=== PATIENT | female | born 1970 | race Caucasian/White ===

== ENCOUNTER 2017-05-25 21:51 | Inpatient (IN) ==
[2017-05-25] MEDS ORDERED: D5% in Water 1,000 ML IVC PRN (23:24)
[2017-05-25] MEDS ORDERED: Dextrose Gel 15 GM PO PRN ×2 (23:24)
[2017-05-25] MEDS ORDERED: *HR* Dextrose 50 % in Water (Syg) 50 ML SYRINGE IVP PRN (23:24)
[2017-05-25] MEDS ORDERED: Insulin DETEMIR 100 UNIT/ML per UNIT SQ ONE (23:45)
[2017-05-26] MEDS: Insulin LISPRO 300 UNITS/3 ML VIAL SQ SCH ×5 (01:04→21:14)
[2017-05-26] MEDS: Albuterol 2.5 MG/3 ML NEBULIZER IH SCH ×7 (01:05→23:46)
[2017-05-26 05:55] LABS: Basophils % 0.5 %; Eosinophils % 0.9 %; Hematocrit 23.6 % (35.3-44.9); Hemoglobin 7.3 g/dL (11.5-15.4); Immature Granulocytes % 0.5 % (0-4); Lymphocytes # 0.9 K/mcL (0.6-4.6); Lymphocytes % 21.2 %; Mean Corpuscular HGB Conc 30.9 g/dL (31.6-35.5); Mean Corpuscular Hemoglobin 26.6 pg (28.0-33.3); Mean Corpuscular Volume 86.1 fL (83.0-100.0); Monocytes # 0.4 K/mcL (0.0-1.3); Monocytes % 9.5 %; Neutrophils # 2.9 K/mcL (1.6-8.9); Platelet Count 178 K/mcL (140-400); Red Blood Count 2.74 M/mcL (3.82-4.97); Red Cell Distribution Width 14.6 % (11.5-14.5); Segmented Neutrophils % 67.4 %
[2017-05-26 05:56] LABS: INR 1.2; Prothrombin Time 12.9 Seconds (9.4-12.1)
[2017-05-26 05:58] LABS: Activated Partial Thrombo Time 28.1 Seconds (26.0-36.0)
[2017-05-26 06:07] LABS: Calcium 8.6 mg/dL (8.6-10.3); Potassium 3.3 mEq/L (3.5-5.1)
[2017-05-26] MEDS: Sucralfate 1 GM TABLET PO SCH ×4 (06:44→21:15)
[2017-05-26] MEDS: *HR* Heparin 5,000 UNIT/ML VIAL SQ SCH ×2 (06:44→17:41)
[2017-05-26 07:54] LABS: Bilirubin,Urine Negative (Negative); Blood,Urine Trace-lysed (Negative); Clarity,Urine Clear (Clear); Color,Urine Yellow (Yellow); Glucose,Urine (UA) Normal (Normal); Ketones,Urine Negative (Negative); Leukocyte Esterase,Urine Negative (Negative); Nitrite,Urine Negative (Negative); Protein,Urine 30 mg/dL (Neg-Trace); Specific Gravity,Urine 1.015 (1.010-1.025); Urobilinogen,Urine Normal (Normal)
[2017-05-26] MEDS: Multivit/Ca/Min/Fe/FA 1 TAB TABLET PO SCH (08:39)
[2017-05-26] MEDS: Furosemide 40 MG TABLET PO SCH ×2 (08:40→17:08)
[2017-05-26 09:08] LABS: Hemoglobin A1C 6.6 %
[2017-05-26 10:43] LABS: RBC,Urine 0-3 per hpf (0-3); Squamous Epithelial Cell,Urine Few per lpf (None-Few)
--- NOTE | 2017-05-26 12:16 | Internal Med History&Physical ---
Date of Encounter: 05/26/17 Time of Encounter: 12:09 Assessment and Plan (1) Respiratory failure Current visit: Yes Status: Acute Patient appears relaxed with respiratory effort. Noted scattered fine rales throughout lozada. Stated dyspnea with exertion and history of orthopnea. No hypoxia while on O2. Will obtain chest x-ray for evaluation. Continue on current bronchodilators and medications. Physical therapy to evaluate and await recommendations. Qualifiers: Chronicity: acute Respiratory failure complication: unspecified whether with hypoxia or hypercapnia Qualified Code(s): J96.00 - Acute respiratory failure, unspecified whether with hypoxia or hypercapnia (2) Acute kidney failure Current visit: Yes Status: Acute Renal function continues to improve after reviewing patient's hospital records. Creatinine remained 2.77 and patient remains anemic with hemoglobin of 7.3. Patient continues with moderate generalized edema. We will bam the patient's labs and obtain daily weights. Patient to continue on Epogen and current plan of care per nephrology. Qualifiers: Acute renal failure type: unspecified Qualified Code(s): N17.9 - Acute kidney failure, unspecified (3) Diabetes Current visit: No Status: Chronic Patient with a long history of DM and continues with fingersticks and SSI coverage. Last hemoglobin A1c was 8.1 while at [facility] per medical records. We will continue with current insulin coverage and monitor need for adjustments. Qualifiers: Diabetes mellitus type: type 2 Diabetes mellitus complication status: with kidney complications Diabetes mellitus complication detail: with other kidney complication Diabetes mellitus halfway insulin use: with terminal worker use Qualified Code(s): E11.29 - Type 2 diabetes mellitus with other diabetic kidney complication; Z79.4 - intermediate (current) use of insulin; Z79.4 - terminal worker ( current) use of insulin; Z79.4 - intermediate (current) use of insulin; Z79.4 - terminal worker (current) use of insulin (4) Cardiomyopathy Current visit: No Status: Chronic No acute issues at this time. EF at 25% per medical records. Patient states history of orthopnea. We will continue to monitor closely. We will continue with current medications Qualifiers: Cardiomyopathy type: unspecified Qualified Code(s): I42.9 - Cardiomyopathy , unspecified (5) Diarrhea Current visit: Yes Status: Acute Patient with continued diarrhea which has been present since prior to her charge from hospital. Patient was evaluated for C. difficile while in the hospital which was negative at that time. We will resend stool for evaluation of C. difficile. Qualifiers: Diarrhea type: unspecified type Qualified Code(s): R19.7 - Diarrhea, unspecified (6) Anemia Current visit: Yes Status: Acute Hemoglobin was 7.3 this morning. Patient continues on Epogen per nephrology. We will continue to monitor current labs. Qualifiers: Anemia type: unspecified type Qualified Code(s): D64.9 - Anemia, unspecified Internal Medicine - H&P: HPI Chief complaint: Sepsis Admitted From: Intrahospital Transfer Plans for Post Hospital Care: Home History of present illness: Ms. Whitehead is a 47 year old female who was transferred to this facility from [facility] for rehabilitation after an extended stay for treatment for flu sepsis, respiratory failure, SAFIA and DKA. Patient was originally admitted for respiratory failure required intubation at [facility] and found to be septic with influenza. During that hospitalization patient was treated for DKA and progressed into a severe SAFIA. Patient has a long history of cardiomyopathy with a recorded EF of 25% and insulin dependent diabetes. Patient eventually recovered, being extubated several days prior to discharge. Patient continues with treatment of SAFIA and DM and remains in a weakened state. Pt continues with renal insufficiency with a creatinine of 2.77 and noted slight anasarca during exam. Labs also show patient was continued anemia with hemoglobin of 7.3. Patient discharged with Epogen injections. Patient states she continues to have a productive cough with white type sputum received and becomes dyspneic on exertion greater than 30 feet. Patient states orthopnea. Patient also complains of diarrhea, stating multiple episodes of stools throughout the day. Medical records from [facility] show patient was tested for C. difficile approximate 5 days prior to discharge, which was negative. Patient currently denies any discomforts, fever or chills. Patient denies any history of pulmonary issues prior to this admission Past Med Surg Social Fam HX - Past Medical History Medical history: atrial fibrillation, diabetes, other (Cardiomyopathy) Psychiatric history: no psych history - Past Surgical History Surgical History: no surgical history - Social History Smoking Status: Smoker, status unknown Alcohol use: unknown Drug use: unknown - Family History Mother History Unknown: Yes Father History Unknown: Yes Internal Medicine - H&P: Meds Albuterol Neb [Proventil Neb] 2.5 mg IH Q4HR 05/26/17 [History] Carafate 1 gm PO QIDAC 05/26/17 [History] Furosemide [Lasix] 60 mg PO BID 05/26/17 [History] Heparin [Heparin] 5,000 unit SQ Q12HR 05/26/17 [History] Humalog 0 units SQ HS 05/26/17 [History] Insulin LISPRO [HumaLOG] 0 units SQ TIDWM 05/26/17 [History] Lantus 6 units SQ HS 05/26/17 [History] Lopressor 50 mg PO BID 05/26/17 [History] Omeprazole [PriLOSEC] 20 mg PO DAILY 05/26/17 [History] Potassium Chloride [Klor-Con 10] 30 meq PO BID 05/26/17 [History] Procrit 10,000 units SQ 3XW 05/26/17 [History] Thera M Plus 1 tab PO DAILY 05/26/17 [History] 3 Allergy/AdvReac Type Severity Reaction Status Date / Time No Known Allergies Allergy Verified 05/25/17 22:52 All Systems PM: A 10-system review of systems was performed and is negative for pertinent findings except as documented above in the HPI. - Constitutional Constitutional: weakness, no chills, no fever(s), no night sweats - EENT Eyes: no change in vision, no discharge, no pain, no photophobia Ears: no ear discharge, no ear pain, no tinnitus Nose, mouth and throat: no dysphagia, no nasal discharge, no neck pain, no sore throat - Cardiovascular Cardiovascular ROS IM: no chest pain, no diaphoresis, no dyspnea, no lightheadedness, no palpitations, no syncope - Respiratory Respiratory: dyspnea, other, no cough, no wheezing, no excessive phlegm production Additional comments: Dyspnea when ambulating greater than 30 feet. States continued orthopnea. - Gastrointestinal Gastrointestinal: diarrhea, no abdominal pain, no hematemesis, no hematochezia, no melena, no nausea, no vomiting Additional comments: Patient complaints of watery stools with multiple stooling daily - Genitourinary Genitourinary: no change in urinary stream, no dysuria, no flank pain, no hematuria - Musculoskeletal Musculoskeletal ROS IM: no numbness, no tingling - Integumentary Integumentary IM: no rash, no unusual bruising - Neurological Neurological ROS: no confusion, no convulsions, no focal weakness, no numbness, no tingling, no tremor(s) - Hematologic/Lymphatic Hematologic/Lymphatic: no easy bruising - Constitutional Vitals: Temp Pulse Resp BP Pulse Ox 98.3 F 80 14 131/71 92 05/26/17 07:46 05/26/17 09:58 05/26/17 09:58 05/26/17 09:58 05/26/17 09:58 General appearance: Present: A&O X 3, pleasant - Head Head exam: Present: atraumatic, normocephalic - Eye Eye exam: Present: PERRL, conjuntiva pink, sclera anicteric Pupils: Present: PERRL - Neck Neck exam general surgery: Present: supple, trachea midline. Absent: lymphadenopathy - Respiratory Respiratory exam: Absent: accessory muscle use, rhonchi, wheezes Additional comments: Lungs with scattered fine rales throughout - Cardiovascular Cardiovascular exam: Present: RRR, +S1, +S2. Absent: diastolic murmur, gallop, rubs, systolic murmur - GI/Abdominal GI/Abdominal exam: Present: normal bowel sounds, soft, no peritoneal signs. Absent: distended, tenderness - Extremities Exam Extremities exam: Present: pedal edema, warm, radial pulses palpable and symmetrical. Absent: calf tenderness, cyanotic Additional comments: 2+ edema to lower legs - Neurological Exam Neurological exam: Present: CN II-XII intact, oriented X3, no focal deficits. Absent: pronater drift, facial droop, speech deficit - Skin Skin exam: Present: dry, intact Internal Med - H&P Results - Labs CBC & Chem 7: 05/26/17 05:45 05/26/17 05:45 Labs: Short CBC 05/26/17 Range/Units 05:45 WBC 4.3 (4.3-11.1) K/mcL Hgb 7.3 L (11.5-15.4) g/dL Hct 23.6 L (35.3-44.9) % Plt Count 178 (140-400) K/mcL Neutrophils # 2.9 (1.6-8.9) K/mcL BMP 05/26/17 05:45 Sodium 142 Potassium 3.3 L Chloride 97 L Carbon Dioxide 38 H BUN 34 H Creatinine 2.77 H Glucose 78 Calcium 8.6 Urine 05/26/17 Range/Units 07:00 Urine Color Yellow (Yellow) Urine Clarity Clear (Clear) Urine pH 7.0 (5.0-8.0) pH Units Ur Specific Cadet 1.015 (1.010-1.025) Urine Protein 30 H (Neg-Trace) mg/dL Urine Glucose (UA) Normal (Normal) mg/dL
[2017-05-26] MEDS: cefTRIAXone 1,000 MG in Water for inj. (sterile) 10 ML IVP SCH (15:36)
[2017-05-26] MEDS: Azithromycin 250 MG TABLET PO SCH (15:36)
[2017-05-26] MEDS: Diphenoxylate/Atropine 1 TAB TABLET PO PRN (15:36)
[2017-05-26] MEDS: Insulin DETEMIR 100 UNIT/ML X5UNITS SQ SCH (21:15)
[2017-05-27] MEDS: *HR* Heparin 5,000 UNIT/ML VIAL SQ SCH ×2 (05:12→16:57)
[2017-05-27] MEDS: Sucralfate 1 GM TABLET PO SCH ×4 (05:12→20:15)
[2017-05-27] MEDS: Albuterol 2.5 MG/3 ML NEBULIZER IH SCH ×5 (05:14→20:16)
[2017-05-27 06:27] LABS: Hematocrit 24.6 % (35.3-44.9); Hemoglobin 7.7 g/dL (11.5-15.4); Mean Corpuscular HGB Conc 31.3 g/dL (31.6-35.5); Mean Corpuscular Hemoglobin 26.6 pg (28.0-33.3); Mean Corpuscular Volume 84.8 fL (83.0-100.0); Mean Platelet Volume 11.5 fL (9.4-12.4); Platelet Count 169 K/mcL (140-400); Red Cell Distribution Width 14.7 % (11.5-14.5)
[2017-05-27 07:04] LABS: Albumin 2.6 g/dL (3.5-5.7); Albumin/Globulin Ratio 0.7 (1.1-2.2); Bilirubin,Total 0.3 mg/dL (0.3-1.0); Calcium 8.6 mg/dL (8.6-10.3); Globulin 3.7 g/dL (2.4-3.5); Magnesium 1.5 mg/dL (1.6-2.6); Potassium 3.3 mEq/L (3.5-5.1); Total Protein 6.3 g/dL (6.4-8.9)
[2017-05-27] MEDS: Insulin LISPRO 300 UNITS/3 ML VIAL SQ SCH ×4 (08:59→20:17)
[2017-05-27] MEDS: Diphenoxylate/Atropine 1 TAB TABLET PO PRN ×3 (09:00→20:26)
[2017-05-27] MEDS: cefTRIAXone 1,000 MG in Water for inj. (sterile) 10 ML IVP SCH (09:01)
[2017-05-27] MEDS: Multivit/Ca/Min/Fe/FA 1 TAB TABLET PO SCH (09:01)
[2017-05-27] MEDS: Furosemide 40 MG TABLET PO SCH ×2 (09:01→16:52)
--- NOTE | 2017-05-27 11:34 | Internal Med Progress Note ---
Date of Encounter: 05/27/17 Time of Encounter: 11:31 - Assessment and plan (1) Pneumonia Current Visit: Yes Status: Acute Assessment and plan: WBC normal. continue atb and monitor. Qualifiers: Pneumonia type: due to unspecified organism Laterality: bilateral Lung location: lower lobe of lung Qualified Code(s): J18.9 - Pneumonia, unspecified organism (2) Acute kidney failure Current Visit: Yes Status: Acute Assessment and plan: slowly improving. will repeat labs in am. Qualifiers: Acute renal failure type: unspecified Qualified Code(s): N17.9 - Acute kidney failure, unspecified (3) Diabetes Current Visit: No Status: Chronic Assessment and plan: controlled with insulin. monitor FSBS and will adjust meds as necessary. Qualifiers: Diabetes mellitus type: type 2 Diabetes mellitus complication status: with kidney complications Diabetes mellitus complication detail: with other kidney complication Diabetes mellitus exterminator helper insulin use: with exterminator helper use Qualified Code(s): E11.29 - Type 2 diabetes mellitus with other diabetic kidney complication; Z79.4 - penitentiary (current) use of insulin; Z79.4 - penitentiary ( current) use of insulin; Z79.4 - penitentiary (current) use of insulin; Z79.4 - penitentiary (current) use of insulin (4) Diarrhea Current Visit: Yes Status: Acute Assessment and plan: continue immodium. c-diff negative. will add probiotic. Qualifiers: Diarrhea type: unspecified type Qualified Code(s): R19.7 - Diarrhea, unspecified (5) Anemia Current Visit: Yes Status: Acute Assessment and plan: slightly improved. continue epogen, monitor CBC. Qualifiers: Anemia type: unspecified type Qualified Code(s): D64.9 - Anemia, unspecified - Time Spent With Patient 25 - 35 minutes - Subjective Interval history: pt reports strength improving each day. prod cough with white sputum. denies SOB or chest pain. denies fever, chills, N/V. having diarrhea, c-diff was negative. on atb for PNA. anemia slightly improving, on epogen. maintaining appetite. - Constitutional Vitals: Temp Pulse Resp BP Pulse Ox 99.8 F H 88 20 101/68 93 05/27/17 11:00 05/27/17 11:00 05/27/17 11:00 05/27/17 11:00 05/27/17 11:00 General appearance: Present: A&O X 3, pleasant, no acute distress, answers questions appropriately - Head Head exam: Present: atraumatic, normocephalic - Eye Eye exam: Present: PERRL, conjuntiva pink, sclera anicteric Pupils: Present: PERRL - Neck Neck exam general surgery: Present: supple, trachea midline. Absent: lymphadenopathy - Respiratory Respiratory exam: Absent: accessory muscle use, rales, rhonchi, wheezes Additional comments: scattered fine rales in bilat bases. occasional cough. - Cardiovascular Cardiovascular exam: Present: RRR, +S1, +S2. Absent: diastolic murmur, gallop, rubs, systolic murmur - GI/Abdominal GI/Abdominal exam: Present: normal bowel sounds, soft, no peritoneal signs. Absent: distended, tenderness Additional comments: parish cath in place. - Extremities Exam Extremities exam: Present: pedal edema, warm, radial pulses palpable and symmetrical. Absent: calf tenderness, cyanotic Additional comments: 1+ pitting edema BLE. - Neurological Exam Neurological exam: Present: CN II-XII intact, oriented X3, no focal deficits. Absent: pronater drift, facial droop, speech deficit Additional comments: general weakness. - Skin Skin exam: Present: dry, intact Internal Medicine: Result - Labs CBC & Chem 7: 05/27/17 06:19 05/27/17 06:19 Labs: Short CBC 05/27/17 Range/Units 06:19 WBC 4.6 (4.3-11.1) K/mcL Hgb 7.7 L (11.5-15.4) g/dL Hct 24.6 L (35.3-44.9) % Plt Count 169 (140-400) K/mcL BMP 05/27/17 06:19 Sodium 143 Potassium 3.3 L Chloride 100 Carbon Dioxide 34 H BUN 32 H Creatinine 2.39 H Glucose 78 Calcium 8.6 Liver Function 05/27/17 Range/Units 06:19 Total Bilirubin 0.3 (0.3-1.0) mg/dL AST 9 L (13-39) Units/L ALT 10 (7-52) Units/L Alkaline Phosphatase 58 (34-104) Units/L Albumin 2.6 L (3.5-5.7) g/dL - ABG Interpretation ABG results: PT/INR, D-dimer PT 12.9 Seconds (9.4-12.1) H 05/26/17 05:45 - Impressions Impressions Chest X-Ray 05/26/17 12:37 IMPRESSION: Moderate to severe right lower lobe and mild to moderate left lower lobe airspace opacity with some volume loss and air bronchograms most compatible with bibasilar pneumonia. RECOMMENDATION: Recommend aggressive treatment for bilateral pneumonia and follow-up chest x-ray in 3-4 weeks. D/ / Brent Strauss MD / Brent Strauss MD Interpreting Provider: Brent Strauss MD Consult Discharge Plan - Plan Referrals: NONE,PCP [Primary Care Provider] -
[2017-05-27] MEDS: Azithromycin 250 MG TABLET PO SCH (16:53)
[2017-05-27] MEDS: Insulin DETEMIR 100 UNIT/ML X5UNITS SQ SCH (20:16)
[2017-05-28] MEDS: Albuterol 2.5 MG/3 ML NEBULIZER IH SCH ×6 (02:58→20:49)
[2017-05-28] MEDS: Sucralfate 1 GM TABLET PO SCH ×4 (05:14→20:51)
[2017-05-28] MEDS: *HR* Heparin 5,000 UNIT/ML VIAL SQ SCH ×2 (05:15→16:18)
[2017-05-28 05:33] LABS: Mean Corpuscular HGB Conc 30.4 g/dL (31.6-35.5); Mean Corpuscular Hemoglobin 26.1 pg (28.0-33.3); Mean Corpuscular Volume 85.8 fL (83.0-100.0); Mean Platelet Volume 10.7 fL (9.4-12.4); Platelet Count 164 K/mcL (140-400); Red Blood Count 2.68 M/mcL (3.82-4.97); Red Cell Distribution Width 14.8 % (11.5-14.5)
[2017-05-28 05:50] LABS: Calcium 8.5 mg/dL (8.6-10.3); Potassium 3.6 mEq/L (3.5-5.1)
[2017-05-28] MEDS: Insulin LISPRO 300 UNITS/3 ML VIAL SQ SCH ×4 (07:51→20:52)
[2017-05-28] MEDS: Multivit/Ca/Min/Fe/FA 1 TAB TABLET PO SCH (08:08)
[2017-05-28] MEDS: cefTRIAXone 1,000 MG in Water for inj. (sterile) 10 ML IVP SCH (08:08)
[2017-05-28] MEDS: Furosemide 40 MG TABLET PO SCH ×2 (08:08→16:17)
[2017-05-28] MEDS: Diphenoxylate/Atropine 1 TAB TABLET PO PRN ×3 (08:15→20:51)
[2017-05-28] MEDS ORDERED: 0.9 % Sodium Chloride 250 ML ONE ×2 (09:51→13:35)
[2017-05-28] MEDS ORDERED: Furosemide 20 MG/2 ML VIAL IVP ONE (12:34)
--- NOTE | 2017-05-28 13:45 | Internal Med Progress Note ---
Date of Encounter: 05/28/17 Time of Encounter: 13:42 - Assessment and plan (1) Respiratory failure Current Visit: Yes Status: Acute Assessment and plan: No acute issues. Respiratory effort appears relaxed with no complaints of dyspnea. Noted fine rales heard throughout lung auscultation. Chest x-ray continues to show bilateral pleural effusions with increased consolidation on the right base. No hypoxia was saturation greater than 90% on room air. Qualifiers: Chronicity: acute Respiratory failure complication: unspecified whether with hypoxia or hypercapnia Qualified Code(s): J96.00 - Acute respiratory failure, unspecified whether with hypoxia or hypercapnia (2) Acute kidney failure Current Visit: Yes Status: Acute Assessment and plan: Patient's creatinine continues to improve. This morning's hemoglobin dropped to 7.0. Patient currently receiving 2 units of packed RBCs and will give patient Lasix 20 mg in between units. Patient continues to have moderate sized edema. Will place on Zaroxolyn for 3 days. Continue with daily weights, which has remained stable. Plan start patient on a fluid restriction 2000 mL daily. We will recheck hemoglobin in morning. Qualifiers: Acute renal failure type: unspecified Qualified Code(s): N17.9 - Acute kidney failure, unspecified (3) Diabetes Current Visit: No Status: Chronic Assessment and plan: controlled with insulin. monitor FSBS and will adjust meds as necessary. Qualifiers: Diabetes mellitus type: type 2 Diabetes mellitus complication status: with kidney complications Diabetes mellitus complication detail: with other kidney complication Diabetes mellitus half-way insulin use: with half-way use Qualified Code(s): E11.29 - Type 2 diabetes mellitus with other diabetic kidney complication; Z79.4 - jail (current) use of insulin; Z79.4 - jail ( current) use of insulin; Z79.4 - sample steamer (current) use of insulin; Z79.4 - sample steamer (current) use of insulin (4) Cardiomyopathy Current Visit: No Status: Chronic Qualifiers: Cardiomyopathy type: unspecified Qualified Code(s): I42.9 - Cardiomyopathy , unspecified (5) Diarrhea Current Visit: Yes Status: Acute Assessment and plan: Patient continues with complaints of diarrhea. C. difficile was negative. We will start on probiotics. Qualifiers: Diarrhea type: unspecified type Qualified Code(s): R19.7 - Diarrhea, unspecified (6) Anemia Current Visit: Yes Status: Acute Assessment and plan: Patient currently receiving 2 units of packed RBCs with Lasix between units. We will recheck hemoglobin in morning Qualifiers: Anemia type: unspecified type Qualified Code(s): D64.9 - Anemia, unspecified (7) Urine retention Current Visit: Yes Status: Acute Assessment and plan: Patient continues with Phan catheter in place. We will discontinue Phan catheter and performed her scans every 6hrs or post void. We will start on Flomax - Time Spent With Patient less than 15 minutes - Subjective Interval history: Patient appears relaxed. States that she still feels somewhat weak. Denies any discomforts or shortness of breath. Denies productive cough. No fever or chills. Patient currently is receiving #1 of 2 PRBC and tolerating well. This morning's hemoglobin was 7.0 - Constitutional Vitals: Temp Pulse Resp BP Pulse Ox 97.7 F 100 16 124/77 94 05/28/17 13:33 05/28/17 13:33 05/28/17 13:33 05/28/17 13:33 05/28/17 13:33 General appearance: Present: A&O X 3, pleasant, no acute distress, answers questions appropriately - Head Head exam: Present: atraumatic, normocephalic - Eye Eye exam: Present: PERRL, conjuntiva pink, sclera anicteric Pupils: Present: PERRL - Neck Neck exam general surgery: Present: supple, trachea midline. Absent: lymphadenopathy - Respiratory Respiratory exam: Present: CTAB, rales. Absent: accessory muscle use, rhonchi, wheezes Additional comments: Patient has scattered fine rales heard throughout all loz[place]. Respiratory effort appears relaxed - Cardiovascular Cardiovascular exam: Present: RRR, +S1, +S2. Absent: diastolic murmur, gallop, rubs, systolic murmur - GI/Abdominal GI/Abdominal exam: Present: normal bowel sounds, soft, no peritoneal signs. Absent: distended, tenderness - Extremities Exam Extremities exam: Present: pedal edema, warm, radial pulses palpable and symmetrical. Absent: calf tenderness, cyanotic Additional comments: Patient with +2 edema to lower legs and feet. - Neurological Exam Neurological exam: Present: CN II-XII intact, oriented X3, no focal deficits. Absent: pronater drift, facial droop, speech deficit - Skin Skin exam: Present: dry, intact Internal Medicine: Result - Labs CBC & Chem 7: 05/28/17 05:25 05/28/17 05:25 Labs: Short CBC 05/28/17 Range/Units 05:25 WBC 3.9 L (4.3-11.1) K/mcL Hgb 7.0 L (11.5-15.4) g/dL Hct 23.0 L (35.3-44.9) % Plt Count 164 (140-400) K/mcL BMP 05/28/17 05:25 Sodium 143 Potassium 3.6 Chloride 101 Carbon Dioxide 34 H BUN 26 H Creatinine 2.06 H Glucose 47 L Calcium 8.5 L - ABG Interpretation ABG results: PT/INR, D-dimer PT 12.9 Seconds (9.4-12.1) H 05/26/17 05:45 - Impressions Impressions Chest X-Ray 05/28/17 14:31 IMPRESSION: Pulmonary vascular congestion and worsening bilateral mid to lower lung airspace opacities. New small left pleural effusion. Findings may reflect worsening edema and/or pneumonia. Small right pleural effusion has decreased in size since the prior examination. D/ / 05/28/2017 08:33:43 Abilio Jeong MD / [facility] Interpreting Provider: Abilio Jeong MD Consult Discharge Plan - Plan Referrals: NONE,PCP [Primary Care Provider] -
[2017-05-28] MEDS: Azithromycin 250 MG TABLET PO SCH (14:50)
[2017-05-28] MEDS: Lactobacillus 1 EACH CAP.SPRINK PO SCH (14:52)
[2017-05-28] MEDS: Insulin DETEMIR 100 UNIT/ML X5UNITS SQ SCH (20:51)
[2017-05-29] MEDS: Albuterol 2.5 MG/3 ML NEBULIZER IH SCH ×6 (00:15→21:17)
[2017-05-29] MEDS: Sucralfate 1 GM TABLET PO SCH ×4 (05:33→21:17)
[2017-05-29] MEDS: Insulin LISPRO 300 UNITS/3 ML VIAL SQ SCH ×4 (08:07→21:08)
[2017-05-29] MEDS: Furosemide 40 MG TABLET PO SCH ×2 (08:16→17:26)
[2017-05-29] MEDS: Diphenoxylate/Atropine 1 TAB TABLET PO PRN ×2 (08:17→15:39)
[2017-05-29] MEDS: Multivit/Ca/Min/Fe/FA 1 TAB TABLET PO SCH (08:17)
[2017-05-29] MEDS: Lactobacillus 1 EACH CAP.SPRINK PO SCH (08:17)
[2017-05-29] MEDS: cefTRIAXone 1,000 MG in Water for inj. (sterile) 10 ML IVP SCH (08:18)
--- NOTE | 2017-05-29 11:02 | Internal Med Progress Note ---
Date of Encounter: 05/29/17 Time of Encounter: 11:02 - Assessment and plan (1) Respiratory failure Current Visit: Yes Status: Acute Assessment and plan: Improving clinically per patient and nursing, as well as compared to progress notes. Will continue to diurese and follow O2 saturation, etc.. Qualifiers: Chronicity: acute Respiratory failure complication: unspecified whether with hypoxia or hypercapnia Qualified Code(s): J96.00 - Acute respiratory failure, unspecified whether with hypoxia or hypercapnia (2) Acute kidney failure Current Visit: Yes Status: Acute Assessment and plan: Creatinine continues to improve. Doing better after transfusion. Checked hemoglobin and appropriate to transfusion. Qualifiers: Acute renal failure type: unspecified Qualified Code(s): N17.9 - Acute kidney failure, unspecified (3) Diabetes Current Visit: No Status: Chronic Assessment and plan: Not reqiring sliding scale coverage. Qualifiers: Diabetes mellitus type: type 2 Diabetes mellitus complication status: with kidney complications Diabetes mellitus complication detail: with other kidney complication Diabetes mellitus jail insulin use: with termite control representative use Qualified Code(s): E11.29 - Type 2 diabetes mellitus with other diabetic kidney complication; Z79.4 - bed bug exterminator (current) use of insulin; Z79.4 - [facility] ( current) use of insulin; Z79.4 - bed bug exterminator (current) use of insulin; Z79.4 - [facility] (current) use of insulin (4) Cardiomyopathy Current Visit: No Status: Chronic Assessment and plan: Clinically improved vs. progress notes but I'd prefer to restrict salt more than fluids. Will follow clinically and have placed her on a cardiac diet. Qualifiers: Cardiomyopathy type: unspecified Qualified Code(s): I42.9 - Cardiomyopathy , unspecified (5) Diarrhea Current Visit: Yes Status: Acute Assessment and plan: Stable pattern. C. diff was negative so will follow with clinical monitoring. Qualifiers: Diarrhea type: unspecified type Qualified Code(s): R19.7 - Diarrhea, unspecified (6) Anemia Current Visit: Yes Status: Acute Assessment and plan: Stable after transfusion. Qualifiers: Anemia type: unspecified type Qualified Code(s): D64.9 - Anemia, unspecified (7) Urine retention Current Visit: Yes Status: Acute Assessment and plan: Nursing is monitoring with bladder scan, at least occasionally. (8) Decubitus skin ulcer Current Visit: Yes Status: Acute Assessment and plan: She is receiving daily Santyl and Foam covering. Followed by Wound Care. WIll defer to them. Qualifiers: Pressure ulcer location: sacral region Pressure ulcer stage: stage 2 Qualified Code(s): L89.152 - Pressure ulcer of sacral region, stage 2 - Time Spent With Patient 25 - 35 minutes - Subjective Interval history: Feeling better, happy she can walk. Denies dyspnea, even when up to bathrrom without oxygen. Denies wheezing, cough , etc. Still with frequent diarrhea and has been taking her medicine, regularly. No fever, chills, abdominal pain, chest pain, palpitations, leg pain, and ROSis otherwise unremarkable. - Constitutional Vitals: Temp Pulse Resp BP Pulse Ox 98.6 F 67 16 149/84 97 05/29/17 07:09 05/29/17 07:09 05/29/17 07:09 05/29/17 07:09 05/29/17 07:09 General appearance: Present: A&O X 3, pleasant, no acute distress, answers questions appropriately - Head Head exam: Present: atraumatic, normal inspection, normocephalic - Eye Eye exam: Present: EOMI, PERRL, conjuntiva pink. Absent: conjunctival injection , scleral icterus - ENT ENT exam: Present: mucous membranes moist, normal exam - Respiratory Respiratory exam: Present: wheezes. Absent: accessory muscle use - Cardiovascular Cardiovascular exam: Present: +S1, +S2, tachycardia. Absent: gallop, irregular rhythm - GI/Abdominal GI/Abdominal exam: Present: normal bowel sounds. Absent: distended, hepatomegaly, mass, splenomegaly, tenderness - Extremities Exam Extremities exam: Present: pedal edema, warm. Absent: calf tenderness Additional comments: 2-3+ pitting pretibial and ankle and doral foot edema. Patient states this is much improved, vs. even yesterday. - Skin Additional comments: Has eschared stage 2 ulceration at coccygeal region, irregular and larger onright than left. No surrounding signs of erythema or edema to suggest infection. Internal Medicine: Result - Labs CBC & Chem 7: 05/29/17 11:54 05/29/17 11:54 - ABG Interpretation ABG results: PT/INR, D-dimer PT 12.9 Seconds (9.4-12.1) H 05/26/17 05:45 - Impressions Impressions Chest X-Ray 05/28/17 14:31 IMPRESSION: Pulmonary vascular congestion and worsening bilateral mid to lower lung airspace opacities. New small left pleural effusion. Findings may reflect worsening edema and/or pneumonia. Small right pleural effusion has decreased in size since the prior examination. D/ / 05/28/2017 08:33:43 Abilio Jeong MD / sotero Interpreting Provider: Abilio Jeong MD Consult Discharge Plan - Plan Referrals: NONE,PCP [Primary Care Provider] -
[2017-05-29 12:00] LABS: Basophils % 0.6 %; Eosinophils # 0.1 K/mcL (0.0-0.6); Eosinophils % 2.7 %; Hematocrit 30.7 % (35.3-44.9); Hemoglobin 9.9 g/dL (11.5-15.4); Immature Granulocytes % 0.2 % (0-4); Lymphocytes # 1.1 K/mcL (0.6-4.6); Lymphocytes % 21.6 %; Mean Corpuscular HGB Conc 32.2 g/dL (31.6-35.5); Mean Corpuscular Hemoglobin 27.2 pg (28.0-33.3); Mean Corpuscular Volume 84.3 fL (83.0-100.0); Mean Platelet Volume 11.8 fL (9.4-12.4); Monocytes # 0.4 K/mcL (0.0-1.3); Monocytes % 7.9 %; Neutrophils # 3.5 K/mcL (1.6-8.9); Platelet Count 206 K/mcL (140-400); Red Blood Count 3.64 M/mcL (3.82-4.97); Red Cell Distribution Width 14.7 % (11.5-14.5)
[2017-05-29 12:05] LABS: INR 1.1; Prothrombin Time 12.2 Seconds (9.4-12.1)
[2017-05-29 12:18] LABS: Calcium 8.9 mg/dL (8.6-10.3); Potassium 3.7 mEq/L (3.5-5.1)
[2017-05-29] MEDS: Azithromycin 250 MG TABLET PO SCH (15:39)
[2017-05-29] MEDS: Insulin DETEMIR 100 UNIT/ML X5UNITS SQ SCH (21:18)
[2017-05-30] MEDS: Albuterol 2.5 MG/3 ML NEBULIZER IH SCH ×6 (02:08→20:46)
[2017-05-30 05:06] LABS: Calcium 8.7 mg/dL (8.6-10.3); Magnesium 1.5 mg/dL (1.6-2.6); Potassium 4.2 mEq/L (3.5-5.1)
[2017-05-30] MEDS: Sucralfate 1 GM TABLET PO SCH ×4 (06:52→20:46)
[2017-05-30] MEDS: Insulin LISPRO 300 UNITS/3 ML VIAL SQ SCH ×4 (07:42→20:28)
--- NOTE | 2017-05-30 07:47 | Internal Med Progress Note ---
Date of Encounter: 05/30/17 Time of Encounter: 07:45 - Assessment and plan (1) Respiratory failure Current Visit: Yes Status: Acute Assessment and plan: Continues to improve. Will continue to diurese and weqn O2 as possible. Qualifiers: Chronicity: acute Respiratory failure complication: unspecified whether with hypoxia or hypercapnia Qualified Code(s): J96.00 - Acute respiratory failure, unspecified whether with hypoxia or hypercapnia (2) Acute kidney failure Current Visit: Yes Status: Acute Assessment and plan: Stable creatinine. Will continue to follow. Qualifiers: Acute renal failure type: unspecified Qualified Code(s): N17.9 - Acute kidney failure, unspecified (3) Diabetes Current Visit: No Status: Chronic Assessment and plan: Not reqiring sliding scale coverage. Qualifiers: Diabetes mellitus type: type 2 Diabetes mellitus complication status: with kidney complications Diabetes mellitus complication detail: with other kidney complication Diabetes mellitus termite technician insulin use: with long-term use Qualified Code(s): E11.29 - Type 2 diabetes mellitus with other diabetic kidney complication; Z79.4 - skilled nursing (current) use of insulin; Z79.4 - skilled nursing ( current) use of insulin; Z79.4 - termite technician (current) use of insulin; Z79.4 - termite technician (current) use of insulin (4) Cardiomyopathy Current Visit: No Status: Chronic Assessment and plan: Clinically improved with diuresis. Need to follow BUN/Cr to make josé luis Qualifiers: Cardiomyopathy type: unspecified Qualified Code(s): I42.9 - Cardiomyopathy , unspecified (5) Diarrhea Current Visit: Yes Status: Acute Assessment and plan: As per HPI, trial without Ensure. Qualifiers: Diarrhea type: unspecified type Qualified Code(s): R19.7 - Diarrhea, unspecified (6) Anemia Current Visit: Yes Status: Acute Qualifiers: Anemia type: unspecified type Qualified Code(s): D64.9 - Anemia, unspecified (7) Urine retention Current Visit: Yes Status: Acute Assessment and plan: Nursing is monitoring with bladder scan, at least occasionally. (8) Decubitus skin ulcer Current Visit: Yes Status: Acute Assessment and plan: She is receiving daily Santyl and Foam covering. Followed by Wound Care. WIll defer to them. Qualifiers: Pressure ulcer location: sacral region Pressure ulcer stage: stage 2 Qualified Code(s): L89.152 - Pressure ulcer of sacral region, stage 2 (9) Hypokalemia Current Visit: Yes Status: Acute Assessment and plan: Improved. - Subjective Interval history: Diarrhea persists, essentially unchanged. She questions whether Ensure is causing her diarrhea and I agreed we could try without. ROS is otherwise unremarkable. - Constitutional Vitals: Temp Pulse Resp BP Pulse Ox 98.4 F 86 16 149/89 95 05/30/17 06:58 05/30/17 06:58 05/30/17 06:58 05/30/17 06:58 05/30/17 06:58 General appearance: Present: A&O X 3, pleasant, no acute distress, answers questions appropriately - Head Head exam: Present: atraumatic, normal inspection, normocephalic - Respiratory Respiratory exam: Present: wheezes. Absent: accessory muscle use Additional comments: Still with mild, scattered wheezing but no rales. No localizing findings. - Cardiovascular Cardiovascular exam: Present: RRR. Absent: +S3, systolic murmur - GI/Abdominal GI/Abdominal exam: Present: normal bowel sounds. Absent: hepatomegaly, mass, splenomegaly, tenderness - Extremities Exam Extremities exam: Present: normal capillary refill, pedal edema. Absent: calf tenderness Additional comments: Markedly less edema than yesterday. Still trace. Internal Medicine: Result - Labs CBC & Chem 7: 05/29/17 11:54 05/30/17 04:44 Labs: Short CBC 05/29/17 Range/Units 11:54 WBC 5.2 (4.3-11.1) K/mcL Hgb 9.9 L D (11.5-15.4) g/dL Hct 30.7 L (35.3-44.9) % Plt Count 206 (140-400) K/mcL Neutrophils # 3.5 (1.6-8.9) K/mcL BMP 05/29/17 05/30/17 11:54 04:44 Sodium 140 141 Potassium 3.7 4.2 Chloride 100 102 Carbon Dioxide 28 31 H BUN 18 16 Creatinine 1.77 H 1.72 H Glucose 117 H 146 H Calcium 8.9 8.7 - ABG Interpretation ABG results: PT/INR, D-dimer PT 12.2 Seconds (9.4-12.1) H 05/29/17 11:54 - VTE Documentation of Mechanical Device: Graduated compression elastic hosiery Consult Discharge Plan - Plan Referrals: NONE,PCP [Primary Care Provider] -
[2017-05-30] MEDS: Diphenoxylate/Atropine 1 TAB TABLET PO PRN ×2 (08:42→18:47)
[2017-05-30] MEDS: Lactobacillus 1 EACH CAP.SPRINK PO SCH (08:42)
[2017-05-30] MEDS: Furosemide 40 MG TABLET PO SCH ×2 (08:42→16:58)
[2017-05-30] MEDS: cefTRIAXone 1,000 MG in Water for inj. (sterile) 10 ML IVP SCH (08:43)
[2017-05-30] MEDS: Multivit/Ca/Min/Fe/FA 1 TAB TABLET PO SCH (08:43)
[2017-05-30] MEDS: Azithromycin 250 MG TABLET PO SCH (16:58)
[2017-05-30] MEDS: Insulin DETEMIR 100 UNIT/ML X5UNITS SQ SCH (20:47)
[2017-05-31] MEDS: Albuterol 2.5 MG/3 ML NEBULIZER IH SCH ×6 (00:39→20:09)
[2017-05-31 05:26] LABS: Basophils % 0.4 %; Eosinophils # 0.2 K/mcL (0.0-0.6); Eosinophils % 4.3 %; Hematocrit 29.7 % (35.3-44.9); Hemoglobin 9.3 g/dL (11.5-15.4); Immature Granulocytes % 0.2 % (0-4); Lymphocytes # 0.9 K/mcL (0.6-4.6); Lymphocytes % 19.1 %; Mean Corpuscular HGB Conc 31.3 g/dL (31.6-35.5); Mean Corpuscular Hemoglobin 26.3 pg (28.0-33.3); Mean Corpuscular Volume 84.1 fL (83.0-100.0); Mean Platelet Volume 10.5 fL (9.4-12.4); Monocytes # 0.5 K/mcL (0.0-1.3); Monocytes % 9.7 %; Neutrophils # 3.2 K/mcL (1.6-8.9); Platelet Count 207 K/mcL (140-400); Red Blood Count 3.53 M/mcL (3.82-4.97); Red Cell Distribution Width 15.3 % (11.5-14.5); Segmented Neutrophils % 66.3 %
[2017-05-31 05:42] LABS: Calcium 8.7 mg/dL (8.6-10.3); Potassium 4.4 mEq/L (3.5-5.1)
[2017-05-31] MEDS: Sucralfate 1 GM TABLET PO SCH ×4 (06:41→21:35)
[2017-05-31] MEDS: Diphenoxylate/Atropine 1 TAB TABLET PO PRN ×4 (06:43→21:35)
[2017-05-31] MEDS: Insulin LISPRO 300 UNITS/3 ML VIAL SQ SCH ×4 (07:39→20:13)
[2017-05-31] MEDS: Multivit/Ca/Min/Fe/FA 1 TAB TABLET PO SCH (08:04)
[2017-05-31] MEDS: Lactobacillus 1 EACH CAP.SPRINK PO SCH (08:04)
[2017-05-31] MEDS: Furosemide 40 MG TABLET PO SCH ×2 (08:04→16:37)
[2017-05-31] MEDS: cefTRIAXone 1,000 MG in Water for inj. (sterile) 10 ML IVP SCH (09:54)
--- NOTE | 2017-05-31 11:07 | Internal Med Progress Note ---
Date of Encounter: 05/31/17 Time of Encounter: 11:05 - Assessment and plan (1) Pneumonia Current Visit: Yes Status: Acute Assessment and plan: improving, continue atb and monitor. repeat CXR tomorrow. stable with O2 sat with 2 liters per NC. Qualifiers: Pneumonia type: due to unspecified organism Laterality: bilateral Lung location: lower lobe of lung Qualified Code(s): J18.9 - Pneumonia, unspecified organism (2) Acute kidney failure Current Visit: Yes Status: Acute Assessment and plan: Stable creatinine. Will continue to follow. Qualifiers: Acute renal failure type: unspecified Qualified Code(s): N17.9 - Acute kidney failure, unspecified (3) Diabetes Current Visit: No Status: Chronic Assessment and plan: controlled. continue insulin and monitor FSBS> Qualifiers: Diabetes mellitus type: type 2 Diabetes mellitus complication status: with kidney complications Diabetes mellitus complication detail: with other kidney complication Diabetes mellitus equipment operator intermodal yard insulin use: with residential use Qualified Code(s): E11.29 - Type 2 diabetes mellitus with other diabetic kidney complication; Z79.4 - longterm (current) use of insulin; Z79.4 - longterm ( current) use of insulin; Z79.4 - longterm (current) use of insulin; Z79.4 - longterm (current) use of insulin (4) Diarrhea Current Visit: Yes Status: Acute Assessment and plan: improving. will monitor Qualifiers: Diarrhea type: unspecified type Qualified Code(s): R19.7 - Diarrhea, unspecified (5) Anemia Current Visit: Yes Status: Acute Assessment and plan: remains stable after transfusion. repeat labs in am. Qualifiers: Anemia type: unspecified type Qualified Code(s): D64.9 - Anemia, unspecified - Time Spent With Patient 25 - 35 minutes - Subjective Interval history: pt reports strength improving each day. prod cough with white sputum. denies SOB or chest pain. denies fever, chills, N/V. diarrhea improving. had episode after dinner last night, none today yet. HGB stable aft 2 units PRBC's a couple days ago. - Constitutional Vitals: Temp Pulse Resp BP Pulse Ox 98.1 F 85 16 136/80 98 05/31/17 07:01 05/31/17 07:01 05/31/17 07:01 05/31/17 07:01 05/31/17 07:01 General appearance: Present: A&O X 3, pleasant, no acute distress, answers questions appropriately - Head Head exam: Present: atraumatic, normocephalic - Eye Eye exam: Present: PERRL, conjuntiva pink, sclera anicteric Pupils: Present: PERRL - Neck Neck exam general surgery: Present: supple, trachea midline. Absent: lymphadenopathy - Respiratory Respiratory exam: Absent: accessory muscle use, rales, rhonchi, wheezes Additional comments: fine crackles scattered througout. - Cardiovascular Cardiovascular exam: Present: RRR, +S1, +S2. Absent: diastolic murmur, gallop, rubs, systolic murmur - GI/Abdominal GI/Abdominal exam: Present: normal bowel sounds, soft, no peritoneal signs. Absent: distended, tenderness - Extremities Exam Extremities exam: Present: warm, radial pulses palpable and symmetrical. Absent : calf tenderness, cyanotic, pedal edema - Neurological Exam Neurological exam: Present: CN II-XII intact, oriented X3, no focal deficits. Absent: pronater drift, facial droop, speech deficit - Skin Skin exam: Present: dry, intact Additional comments: scabbed areas X's 2 on posterior scalp. buttocks wound unstagable. Internal Medicine: Result - Labs CBC & Chem 7: 05/31/17 05:20 05/31/17 05:20 Labs: Short CBC 05/31/17 Range/Units 05:20 WBC 4.9 (4.3-11.1) K/mcL Hgb 9.3 L (11.5-15.4) g/dL Hct 29.7 L (35.3-44.9) % Plt Count 207 (140-400) K/mcL Neutrophils # 3.2 (1.6-8.9) K/mcL BMP 05/31/17 05:20 Sodium 141 Potassium 4.4 Chloride 103 Carbon Dioxide 30 H BUN 16 Creatinine 1.94 H Glucose 100 Calcium 8.7 - ABG Interpretation ABG results: PT/INR, D-dimer PT 12.2 Seconds (9.4-12.1) H 05/29/17 11:54 - VTE Documentation of Mechanical Device: Graduated compression elastic hosiery Consult Discharge Plan - Plan Referrals: NONE,PCP [Primary Care Provider] -
[2017-05-31] MEDS: Azithromycin 250 MG TABLET PO SCH (16:37)
[2017-05-31] MEDS: Insulin DETEMIR 100 UNIT/ML X5UNITS SQ SCH (20:20)
[2017-06-01] MEDS: Albuterol 2.5 MG/3 ML NEBULIZER IH SCH ×6 (00:25→23:46)
[2017-06-01 05:14] LABS: Basophils % 0.6 %; Eosinophils # 0.3 K/mcL (0.0-0.6); Eosinophils % 5.5 %; Hematocrit 31.6 % (35.3-44.9); Immature Granulocytes % 0.2 % (0-4); Lymphocytes # 1.1 K/mcL (0.6-4.6); Lymphocytes % 22.3 %; Mean Corpuscular HGB Conc 31.6 g/dL (31.6-35.5); Mean Corpuscular Hemoglobin 26.8 pg (28.0-33.3); Mean Corpuscular Volume 84.7 fL (83.0-100.0); Mean Platelet Volume 11.1 fL (9.4-12.4); Monocytes # 0.5 K/mcL (0.0-1.3); Monocytes % 10.6 %; Neutrophils # 3.1 K/mcL (1.6-8.9); Platelet Count 219 K/mcL (140-400); Red Blood Count 3.73 M/mcL (3.82-4.97); Red Cell Distribution Width 15.7 % (11.5-14.5); Segmented Neutrophils % 60.8 %
[2017-06-01 05:27] LABS: Albumin 2.8 g/dL (3.5-5.7); Albumin/Globulin Ratio 0.7 (1.1-2.2); Bilirubin,Total 0.3 mg/dL (0.3-1.0); Globulin 4.2 g/dL (2.4-3.5); Potassium 4.6 mEq/L (3.5-5.1)
[2017-06-01] MEDS: Diphenoxylate/Atropine 1 TAB TABLET PO PRN ×3 (06:37→19:39)
[2017-06-01] MEDS: Sucralfate 1 GM TABLET PO SCH ×4 (06:37→23:45)
[2017-06-01] MEDS: Insulin LISPRO 300 UNITS/3 ML VIAL SQ SCH ×4 (07:16→20:09)
[2017-06-01] MEDS: Lactobacillus 1 EACH CAP.SPRINK PO SCH (08:05)
[2017-06-01] MEDS: Multivit/Ca/Min/Fe/FA 1 TAB TABLET PO SCH (08:05)
[2017-06-01] MEDS: Furosemide 40 MG TABLET PO SCH ×2 (08:07→16:51)
[2017-06-01] MEDS: cefTRIAXone 1,000 MG in Water for inj. (sterile) 10 ML IVP SCH (08:08)
--- NOTE | 2017-06-01 10:41 | Internal Med Progress Note ---
Date of Encounter: 06/01/17 Time of Encounter: 10:39 - Assessment and plan (1) Pneumonia Current Visit: Yes Status: Acute Assessment and plan: improving, continue atb and monitor. CXR shows improvement. stable with O2 sat 95% 2 liters per NC. Qualifiers: Pneumonia type: due to unspecified organism Laterality: bilateral Lung location: lower lobe of lung Qualified Code(s): J18.9 - Pneumonia, unspecified organism (2) Acute kidney failure Current Visit: Yes Status: Acute Assessment and plan: creatine 2.01, to increase fluids. states diarrhea improving. will consider IVF today. Qualifiers: Acute renal failure type: unspecified Qualified Code(s): N17.9 - Acute kidney failure, unspecified (3) Diabetes Current Visit: No Status: Chronic Assessment and plan: controlled. continue insulin and monitor FSBS> Qualifiers: Diabetes mellitus type: type 2 Diabetes mellitus complication status: with kidney complications Diabetes mellitus complication detail: with other kidney complication Diabetes mellitus usp insulin use: with usp use Qualified Code(s): E11.29 - Type 2 diabetes mellitus with other diabetic kidney complication; Z79.4 - skilled nursing (current) use of insulin; Z79.4 - skilled nursing ( current) use of insulin; Z79.4 - skilled nursing (current) use of insulin; Z79.4 - ferry terminal agent (current) use of insulin (4) Diarrhea Current Visit: Yes Status: Acute Assessment and plan: improving. will monitor. probably related to antibiotic. last c-diff negative. Qualifiers: Diarrhea type: unspecified type Qualified Code(s): R19.7 - Diarrhea, unspecified (5) Anemia Current Visit: Yes Status: Acute Assessment and plan: improved today hgb. 10.0, yesterday 9.3. will monitor labs. Qualifiers: Anemia type: unspecified type Qualified Code(s): D64.9 - Anemia, unspecified - Time Spent With Patient 25 - 35 minutes - Subjective Interval history: states strength improving. denies SOB, chest pain, fever or chills. c/o slight pain on buttocks from wound. diarrhea improving with meds. CXR shows improvement this am, along with hemoglobin. - Constitutional Vitals: Temp Pulse Resp BP Pulse Ox 97.6 F 93 14 143/82 95 06/01/17 06:00 06/01/17 06:00 06/01/17 06:00 06/01/17 06:00 06/01/17 06:00 General appearance: Present: A&O X 3, pleasant, no acute distress, answers questions appropriately - Head Head exam: Present: atraumatic, normocephalic - Eye Eye exam: Present: PERRL, conjuntiva pink, sclera anicteric Pupils: Present: PERRL - Neck Neck exam general surgery: Present: supple, trachea midline. Absent: lymphadenopathy - Respiratory Respiratory exam: Present: CTAB. Absent: accessory muscle use, rales, rhonchi, wheezes Additional comments: fine crackles RLL. - Cardiovascular Cardiovascular exam: Present: RRR, +S1, +S2. Absent: diastolic murmur, gallop, rubs, systolic murmur - GI/Abdominal GI/Abdominal exam: Present: normal bowel sounds, soft, no peritoneal signs. Absent: distended, tenderness - Extremities Exam Extremities exam: Present: warm, radial pulses palpable and symmetrical. Absent : calf tenderness, cyanotic, pedal edema - Neurological Exam Neurological exam: Present: CN II-XII intact, oriented X3, no focal deficits. Absent: pronater drift, facial droop, speech deficit - Skin Skin exam: Present: dry, intact Additional comments: wound to buttocks, drsg dry and intact. scabs on posterior scalp intact. no signs of infection. Internal Medicine: Result - Labs CBC & Chem 7: 06/01/17 05:10 06/01/17 05:10 Labs: Short CBC 06/01/17 Range/Units 05:10 WBC 5.1 (4.3-11.1) K/mcL Hgb 10.0 L (11.5-15.4) g/dL Hct 31.6 L (35.3-44.9) % Plt Count 219 (140-400) K/mcL Neutrophils # 3.1 (1.6-8.9) K/mcL BMP 06/01/17 05:10 Sodium 140 Potassium 4.6 Chloride 103 Carbon Dioxide 27 BUN 17 Creatinine 2.01 H Glucose 129 H Calcium 9.0 Liver Function 06/01/17 Range/Units 05:10 Total Bilirubin 0.3 (0.3-1.0) mg/dL AST 9 L (13-39) Units/L ALT 11 (7-52) Units/L Alkaline Phosphatase 63 (34-104) Units/L Albumin 2.8 L (3.5-5.7) g/dL - ABG Interpretation ABG results: PT/INR, D-dimer PT 12.2 Seconds (9.4-12.1) H 05/29/17 11:54 - Impressions Impressions Chest X-Ray 06/01/17 11:04 IMPRESSION: 1. Stable bilateral pulmonary consolidative changes. 2. Stable mild pleural effusions. D/ / 06/01/2017 08:10:35 James Ch MD / mara Interpreting Provider: James Ch MD - VTE Documentation of Mechanical Device: Graduated compression elastic hosiery Consult Discharge Plan - Plan Referrals: NONE,PCP [Primary Care Provider] -
[2017-06-01] MEDS ORDERED: 0.9 % Sodium Chloride 1,000 ML IV SCH (14:15)
[2017-06-01] MEDS: Azithromycin 250 MG TABLET PO SCH (15:32)
[2017-06-01] MEDS: Insulin DETEMIR 100 UNIT/ML X5UNITS SQ SCH (20:08)
[2017-06-02] MEDS: Sucralfate 1 GM TABLET PO SCH ×4 (05:23→20:14)
[2017-06-02] MEDS: Albuterol 2.5 MG/3 ML NEBULIZER IH SCH ×6 (05:27→20:22)
[2017-06-02 05:42] LABS: Calcium 8.8 mg/dL (8.6-10.3); Potassium 4.9 mEq/L (3.5-5.1)
[2017-06-02] MEDS: Diphenoxylate/Atropine 1 TAB TABLET PO PRN ×4 (06:33→20:14)
[2017-06-02] MEDS: Insulin LISPRO 300 UNITS/3 ML VIAL SQ SCH ×5 (06:33→20:21)
[2017-06-02] MEDS: Lactobacillus 1 EACH CAP.SPRINK PO SCH (08:05)
[2017-06-02] MEDS: Multivit/Ca/Min/Fe/FA 1 TAB TABLET PO SCH (08:05)
[2017-06-02] MEDS: cefTRIAXone 1,000 MG in Water for inj. (sterile) 10 ML IVP SCH (08:06)
[2017-06-02] MEDS: Furosemide 40 MG TABLET PO SCH ×2 (08:06→16:55)
--- NOTE | 2017-06-02 12:49 | Internal Med Progress Note ---
Date of Encounter: 06/02/17 Time of Encounter: 12:47 - Assessment and plan (1) Respiratory failure Current Visit: Yes Status: Acute Assessment and plan: Continues to improve. Will continue to diurese and wean O2 as possible, which currently is at 1 lpm with sat >90%. CXR improving with slight reduction in bilateral pleural effusions. Will continue with current ATB. Qualifiers: Chronicity: acute Respiratory failure complication: unspecified whether with hypoxia or hypercapnia Qualified Code(s): J96.00 - Acute respiratory failure, unspecified whether with hypoxia or hypercapnia (2) Acute kidney failure Current Visit: Yes Status: Acute Assessment and plan: Continue to improve with Creatinine down to 2.0. Will continue to monitor serial labs. Weights have been stable and slow resolve of her anasarca.. Qualifiers: Acute renal failure type: unspecified Qualified Code(s): N17.9 - Acute kidney failure, unspecified (3) Diabetes Current Visit: No Status: Chronic Assessment and plan: No acute issues. FS shows controlled with most readings <200 and covered with SSI. Will continue with current meds. Qualifiers: Diabetes mellitus type: type 2 Diabetes mellitus complication status: with kidney complications Diabetes mellitus complication detail: with other kidney complication Diabetes mellitus senior care insulin use: with ripsaw operator use Qualified Code(s): E11.29 - Type 2 diabetes mellitus with other diabetic kidney complication; Z79.4 - cable television access coordinator (current) use of insulin; Z79.4 - [facility] ( current) use of insulin; Z79.4 - cable television access coordinator (current) use of insulin; Z79.4 - [facility] (current) use of insulin (4) Cardiomyopathy Current Visit: No Status: Chronic Qualifiers: Cardiomyopathy type: unspecified Qualified Code(s): I42.9 - Cardiomyopathy , unspecified (5) Diarrhea Current Visit: Yes Status: Acute Assessment and plan: Continued c/o of diarrhea, but states that it has been improving. Will contiue with current meds. Labs stable. Qualifiers: Diarrhea type: unspecified type Qualified Code(s): R19.7 - Diarrhea, unspecified (6) Anemia Current Visit: Yes Status: Acute Assessment and plan: Currently resolved after PRBC. Will continue with epogen per renal . Qualifiers: Anemia type: unspecified type Qualified Code(s): D64.9 - Anemia, unspecified (7) Urine retention Current Visit: Yes Status: Acute Assessment and plan: Resolved. Will discontinue Flomax. - Subjective Interval history: Patient appears relaxed. States that she still has been having the diarrhea. Denies any discomforts or shortness of breath or discomforts. Denies productive cough. No fever or chills. - Constitutional Vitals: Temp Pulse Resp BP Pulse Ox 97.7 F 81 16 137/81 93 06/02/17 06:49 06/02/17 06:49 06/02/17 06:49 06/02/17 06:49 06/02/17 06:49 General appearance: Present: A&O X 3, pleasant, no acute distress, answers questions appropriately - Head Head exam: Present: atraumatic, normocephalic - Eye Eye exam: Present: PERRL, conjuntiva pink, sclera anicteric Pupils: Present: PERRL - Neck Neck exam general surgery: Present: supple, trachea midline. Absent: lymphadenopathy - Respiratory Respiratory exam: Present: CTAB, rales. Absent: accessory muscle use, rhonchi, wheezes Additional comments: Continued fine bibasilar rales. Resp effort relaxed. - Cardiovascular Cardiovascular exam: Present: RRR, +S1, +S2. Absent: diastolic murmur, gallop, rubs, systolic murmur - GI/Abdominal GI/Abdominal exam: Present: normal bowel sounds, soft, no peritoneal signs. Absent: distended, tenderness - Extremities Exam Extremities exam: Present: pedal edema, warm, radial pulses palpable and symmetrical. Absent: calf tenderness, cyanotic Additional comments: Continued slight nonpitting edema - Neurological Exam Neurological exam: Present: CN II-XII intact, oriented X3, no focal deficits. Absent: pronater drift, facial droop, speech deficit - Skin Skin exam: Present: dry, intact Internal Medicine: Result - Labs CBC & Chem 7: 06/01/17 05:10 06/02/17 05:20 Labs: BMP 06/02/17 05:20 Sodium 140 Potassium 4.9 Chloride 107 Carbon Dioxide 26 BUN 16 Creatinine 1.77 H Glucose 53 L Calcium 8.8 - ABG Interpretation ABG results: PT/INR, D-dimer PT 12.2 Seconds (9.4-12.1) H 05/29/17 11:54 - VTE Documentation of Mechanical Device: Graduated compression elastic hosiery Consult Discharge Plan - Plan Referrals: NONE,PCP [Primary Care Provider] -
[2017-06-02] MEDS: Azithromycin 250 MG TABLET PO SCH (16:55)
[2017-06-02] MEDS: Insulin DETEMIR 100 UNIT/ML X5UNITS SQ SCH (20:16)
[2017-06-03] MEDS: Albuterol 2.5 MG/3 ML NEBULIZER IH SCH ×6 (01:26→22:04)
[2017-06-03] MEDS: Sucralfate 1 GM TABLET PO SCH ×4 (05:18→22:05)
[2017-06-03] MEDS: Insulin LISPRO 300 UNITS/3 ML VIAL SQ SCH ×2 (08:19→12:11)
[2017-06-03] MEDS: Lactobacillus 1 EACH CAP.SPRINK PO SCH (08:26)
[2017-06-03] MEDS: Diphenoxylate/Atropine 1 TAB TABLET PO PRN (08:26)
[2017-06-03] MEDS: Multivit/Ca/Min/Fe/FA 1 TAB TABLET PO SCH (08:26)
[2017-06-03] MEDS: Furosemide 40 MG TABLET PO SCH ×2 (08:26→17:32)
[2017-06-03] MEDS: cefTRIAXone 1,000 MG in Water for inj. (sterile) 10 ML IVP SCH (08:29)
--- NOTE | 2017-06-03 11:45 | Internal Med Progress Note ---
Date of Encounter: 06/03/17 Time of Encounter: 11:38 - Assessment and plan (1) Pneumonia Current Visit: Yes Status: Acute Assessment and plan: improving, continue atb and monitor. CXR shows improvement. trying to wean down O2 Qualifiers: Pneumonia type: due to unspecified organism Laterality: bilateral Lung location: lower lobe of lung Qualified Code(s): J18.9 - Pneumonia, unspecified organism (2) Acute kidney failure Current Visit: Yes Status: Acute Assessment and plan: Continue to improve with Creatinine down to 1.77. Will continue to monitor serial labs. . Qualifiers: Acute renal failure type: unspecified Qualified Code(s): N17.9 - Acute kidney failure, unspecified (3) Diabetes Current Visit: No Status: Chronic Assessment and plan: No acute issues. FS shows controlled Will continue with current meds. Qualifiers: Diabetes mellitus type: type 2 Diabetes mellitus complication status: with kidney complications Diabetes mellitus complication detail: with other kidney complication Diabetes mellitus custodial insulin use: with custodial use Qualified Code(s): E11.29 - Type 2 diabetes mellitus with other diabetic kidney complication; Z79.4 - rn long term care (current) use of insulin; Z79.4 - rn long term care ( current) use of insulin; Z79.4 - halfway (current) use of insulin; Z79.4 - rn long term care (current) use of insulin (4) Diarrhea Current Visit: Yes Status: Acute Assessment and plan: Continued c/o of diarrhea, but states that it has been improving. Will contiue with current meds. Labs stable. Qualifiers: Diarrhea type: unspecified type Qualified Code(s): R19.7 - Diarrhea, unspecified (5) Anemia Current Visit: Yes Status: Acute Assessment and plan: Currently resolved after PRBC. Will continue with epogen per renal . Qualifiers: Anemia type: unspecified type Qualified Code(s): D64.9 - Anemia, unspecified - Time Spent With Patient 25 - 35 minutes - Subjective Interval history: participating well with therapy. trying to have O2 off, sats90% with exertion with activity during OT. will monitor. denies SOB, wheezing or chest pain. states had episode of diarrhea last night, none yet today. improving. - Constitutional Vitals: Temp Pulse Resp BP Pulse Ox 97.9 F 81 20 145/87 97 06/03/17 06:00 06/03/17 06:00 06/03/17 08:47 06/03/17 06:00 06/03/17 06:00 General appearance: Present: A&O X 3, pleasant, no acute distress, answers questions appropriately - Head Head exam: Present: atraumatic, normocephalic - Eye Eye exam: Present: PERRL, conjuntiva pink, sclera anicteric Pupils: Present: PERRL - Neck Neck exam general surgery: Present: supple, trachea midline. Absent: lymphadenopathy - Respiratory Respiratory exam: Absent: accessory muscle use, rales, rhonchi, wheezes Additional comments: fine crackles LLL. - Cardiovascular Cardiovascular exam: Present: RRR, +S1, +S2. Absent: diastolic murmur, gallop, rubs, systolic murmur - GI/Abdominal GI/Abdominal exam: Present: normal bowel sounds, soft, no peritoneal signs. Absent: distended, tenderness - Extremities Exam Extremities exam: Present: warm, radial pulses palpable and symmetrical. Absent : calf tenderness, cyanotic, pedal edema - Neurological Exam Neurological exam: Present: CN II-XII intact, oriented X3, no focal deficits. Absent: pronater drift, facial droop, speech deficit - Skin Skin exam: Present: dry, intact Internal Medicine: Result - Labs CBC & Chem 7: 06/01/17 05:10 06/02/17 05:20 - ABG Interpretation ABG results: PT/INR, D-dimer PT 12.2 Seconds (9.4-12.1) H 05/29/17 11:54 - VTE Documentation of Mechanical Device: Graduated compression elastic hosiery Consult Discharge Plan - Plan Referrals: NONE,PCP [Primary Care Provider] -
--- NOTE | 2017-06-03 13:19 | Internal Med Progress Note ---
Date of Encounter: 06/03/17 Time of Encounter: 12:48 - Assessment and plan (1) Respiratory failure Current Visit: Yes Status: Acute Assessment and plan: Patient's respirations have improved. She still on O2 724. I will slowly weaning it down Qualifiers: Chronicity: acute Respiratory failure complication: unspecified whether with hypoxia or hypercapnia Qualified Code(s): J96.00 - Acute respiratory failure, unspecified whether with hypoxia or hypercapnia (2) Acute kidney failure Current Visit: Yes Status: Acute Assessment and plan: Improve is still showing chronic elevation of her creatinine. Qualifiers: Acute renal failure type: unspecified Qualified Code(s): N17.9 - Acute kidney failure, unspecified (3) Diabetes Current Visit: No Status: Chronic Assessment and plan: Lunch sugars are still labile. Qualifiers: Diabetes mellitus type: type 2 Diabetes mellitus complication status: with kidney complications Diabetes mellitus complication detail: with other kidney complication Diabetes mellitus care home insulin use: with terminal make up operator use Qualified Code(s): E11.29 - Type 2 diabetes mellitus with other diabetic kidney complication; Z79.4 - intermediate accountant (current) use of insulin; Z79.4 - residential ( current) use of insulin; Z79.4 - intermediate accountant (current) use of insulin; Z79.4 - intermediate accountant (current) use of insulin (4) Cardiomyopathy Current Visit: No Status: Chronic Assessment and plan: This by history Qualifiers: Cardiomyopathy type: unspecified Qualified Code(s): I42.9 - Cardiomyopathy , unspecified (5) Diarrhea Current Visit: Yes Status: Acute Assessment and plan: Diarrhea has slowed but still there. Qualifiers: Diarrhea type: unspecified type Qualified Code(s): R19.7 - Diarrhea, unspecified (6) Anemia Current Visit: Yes Status: Acute Assessment and plan: Is corrected to over 9. She does feel better with the correction of her hemoglobin which was sampled Qualifiers: Anemia type: unspecified type Qualified Code(s): D64.9 - Anemia, unspecified (7) Pneumonia Current Visit: Yes Status: Acute Qualifiers: Pneumonia type: due to unspecified organism Laterality: bilateral Lung location: lower lobe of lung Qualified Code(s): J18.9 - Pneumonia, unspecified organism (8) Urine retention Current Visit: Yes Status: Acute Assessment and plan: Patient had a Phan until day before yesterday at which time I stop the Phan order bladder scan; there are straight catheter as needed. The nursing is reporting that she is voiding spontaneously at this time - Time Spent With Patient less than 15 minutes - Subjective Interval history: This patient is working with the PT OT and TR departments without much difficulty. She is still very weak. Patient still has diarrhea. This patient respiratory failure with septic and had lots of problems. She is still weak from being on the vent not moving for week. He still has bibasilar pneumonic processes. And still had electrolyte abnormalities along with dehydration. Very anemic and I ended up given her 2 units of blood. We will follow the chest x-ray and H&H. Do not find any evidence of acute bleeding at this time. Continue to work with her and watch her closely. She very fragile and she is a several year diagnosed insulin-dependent diabetic. She also had acute renal failure so were following her lab. - Constitutional Vitals: Temp Pulse Resp BP Pulse Ox 97.9 F 81 20 145/87 97 06/03/17 06:00 06/03/17 06:00 06/03/17 08:47 06/03/17 06:00 06/03/17 06:00 General appearance: Present: A&O X 3, pleasant, no acute distress, answers questions appropriately - Head Head exam: Present: atraumatic, normal inspection, normocephalic - Neck Neck exam general surgery: Present: supple, trachea midline. Absent: lymphadenopathy - Respiratory Respiratory exam: Present: decreased breath sounds, CTAB. Absent: accessory muscle use, rales, rhonchi, wheezes - Cardiovascular Cardiovascular exam: Present: RRR, +S1, +S2. Absent: diastolic murmur, gallop, rubs, systolic murmur - GI/Abdominal GI/Abdominal exam: Present: normal bowel sounds, soft, no peritoneal signs. Absent: distended, tenderness Internal Medicine: Result - Labs CBC & Chem 7: 06/01/17 05:10 06/02/17 05:20 Labs: Still shows sign of some renal failure. With the elevated creatinine - ABG Interpretation ABG results: PT/INR, D-dimer PT 12.2 Seconds (9.4-12.1) H 05/29/17 11:54 - VTE Documentation of Mechanical Device: Graduated compression elastic hosiery Consult Discharge Plan - Plan Referrals: NONE,PCP [Primary Care Provider] -
[2017-06-03] MEDS: Azithromycin 250 MG TABLET PO SCH (17:33)
[2017-06-03] MEDS: Insulin DETEMIR 100 UNIT/ML X5UNITS SQ SCH (22:04)
[2017-06-04] MEDS: Albuterol 2.5 MG/3 ML NEBULIZER IH SCH ×6 (00:38→21:12)
[2017-06-04] MEDS: Sucralfate 1 GM TABLET PO SCH ×4 (06:49→21:11)
[2017-06-04] MEDS: Diphenoxylate/Atropine 1 TAB TABLET PO PRN (07:00)
[2017-06-04] MEDS: Lactobacillus 1 EACH CAP.SPRINK PO SCH (09:06)
[2017-06-04] MEDS: Furosemide 40 MG TABLET PO SCH ×2 (09:06→17:30)
[2017-06-04] MEDS: cefTRIAXone 1,000 MG in Water for inj. (sterile) 10 ML IVP SCH (09:07)
[2017-06-04] MEDS: Multivit/Ca/Min/Fe/FA 1 TAB TABLET PO SCH (09:07)
--- NOTE | 2017-06-04 11:31 | Internal Med Progress Note ---
Date of Encounter: 06/04/17 Time of Encounter: 11:29 - Assessment and plan (1) Respiratory failure Current Visit: Yes Status: Acute Assessment and plan: Patient continues with fine bibasilar rales, but appears in no distress and has no complaints. Noted to occasionally desaturate to high 80s during ambulation, but is asymptomatic. No dyspnea or productive cough. Patient has been on current antibiotics for 10 days and last chest x-ray showed improvement. We will discontinue current antibiotics and monitor closely. Remains afebrile Qualifiers: Chronicity: acute Respiratory failure complication: unspecified whether with hypoxia or hypercapnia Qualified Code(s): J96.00 - Acute respiratory failure, unspecified whether with hypoxia or hypercapnia (2) Acute kidney failure Current Visit: Yes Status: Acute Assessment and plan: Improve is still showing chronic elevation of her creatinine, which currently is at 1.7. We will repeat labs on Wednesday. Qualifiers: Acute renal failure type: unspecified Qualified Code(s): N17.9 - Acute kidney failure, unspecified (3) Diabetes Current Visit: No Status: Chronic Assessment and plan: No acute issues. Patient's glucoses remained less than 200 and continues with SSI coverage. We will continue with current medications. Qualifiers: Diabetes mellitus type: type 2 Diabetes mellitus complication status: with kidney complications Diabetes mellitus complication detail: with other kidney complication Diabetes mellitus jail insulin use: with jail use Qualified Code(s): E11.29 - Type 2 diabetes mellitus with other diabetic kidney complication; Z79.4 - [facility] (current) use of insulin; Z79.4 - intermediate teacher ( current) use of insulin; Z79.4 - intermediate teacher (current) use of insulin; Z79.4 - intermediate teacher (current) use of insulin (4) Cardiomyopathy Current Visit: No Status: Chronic Assessment and plan: No acute issues. Patient continues with fine bibasilar rales and nonpitting edema. Vital signs stable. Will continue with therapy and current medications Qualifiers: Cardiomyopathy type: unspecified Qualified Code(s): I42.9 - Cardiomyopathy , unspecified (5) Diarrhea Current Visit: Yes Status: Acute Assessment and plan: Patient continues with diarrhea. Antibiotics have been discontinued. Recent C. difficile lab was negative. We will continue with Imodium. If diarrhea continues, then will obtain stool culture and consider Virbrizi. Qualifiers: Diarrhea type: unspecified type Qualified Code(s): R19.7 - Diarrhea, unspecified (6) Anemia Current Visit: No Status: Acute Qualifiers: Anemia type: unspecified type Qualified Code(s): D64.9 - Anemia, unspecified (7) Urine retention Current Visit: No Status: Acute - Subjective Interval history: Patient appears relaxed. States that she still has been having the diarrhea. Denies any discomforts or shortness of breath or discomforts. Denies productive cough. No fever or chills. - Constitutional Vitals: Temp Pulse Resp BP Pulse Ox 98.1 F 84 16 125/80 92 06/04/17 07:25 06/04/17 07:25 06/04/17 07:25 06/04/17 07:25 06/04/17 07:25 General appearance: Present: A&O X 3, pleasant, no acute distress, answers questions appropriately - Head Head exam: Present: atraumatic, normocephalic - Eye Eye exam: Present: PERRL, conjuntiva pink, sclera anicteric Pupils: Present: PERRL - Neck Neck exam general surgery: Present: supple, trachea midline. Absent: lymphadenopathy - Respiratory Respiratory exam: Present: CTAB, rales. Absent: accessory muscle use, rhonchi, wheezes Additional comments: Patient continues with fine posterior bibasilar rales. Noted to occasionally desaturate to the high 80s while ambulating on room air. Appears relaxed with respirations. - Cardiovascular Cardiovascular exam: Present: RRR, +S1, +S2. Absent: diastolic murmur, gallop, rubs, systolic murmur - GI/Abdominal GI/Abdominal exam: Present: normal bowel sounds, soft, no peritoneal signs. Absent: distended, tenderness - Extremities Exam Extremities exam: Present: pedal edema, warm, radial pulses palpable and symmetrical. Absent: calf tenderness, cyanotic Additional comments: Patient continues with nonpitting edema to bilateral legs - Neurological Exam Neurological exam: Present: CN II-XII intact, oriented X3, no focal deficits. Absent: pronater drift, facial droop, speech deficit - Skin Skin exam: Present: dry, intact Internal Medicine: Result - Labs CBC & Chem 7: 06/01/17 05:10 06/02/17 05:20 - ABG Interpretation ABG results: PT/INR, D-dimer PT 12.2 Seconds (9.4-12.1) H 05/29/17 11:54 - VTE Documentation of Mechanical Device: Graduated compression elastic hosiery Consult Discharge Plan - Plan Referrals: NONE,PCP [Primary Care Provider] -
[2017-06-04] MEDS ORDERED: D5% in Water 1,000 ML IVC PRN (17:05)
[2017-06-04] MEDS ORDERED: *HR* Dextrose 50 % in Water (Syg) 50 ML SYRINGE IVP PRN (17:05)
[2017-06-04] MEDS ORDERED: Dextrose Gel 15 GM PO PRN ×2 (17:05)
[2017-06-04] MEDS: Insulin LISPRO 300 UNITS/3 ML VIAL SQ SCH ×2 (17:30→21:12)
[2017-06-04] MEDS: Insulin DETEMIR 100 UNIT/ML X5UNITS SQ SCH (21:10)
[2017-06-05] MEDS: Albuterol 2.5 MG/3 ML NEBULIZER IH SCH ×6 (04:00→19:36)
[2017-06-05] MEDS: Sucralfate 1 GM TABLET PO SCH ×4 (06:21→19:33)
[2017-06-05] MEDS: Diphenoxylate/Atropine 1 TAB TABLET PO PRN ×3 (06:24→19:33)
[2017-06-05] MEDS: Multivit/Ca/Min/Fe/FA 1 TAB TABLET PO SCH (07:48)
[2017-06-05] MEDS: Lactobacillus 1 EACH CAP.SPRINK PO SCH (07:48)
[2017-06-05] MEDS: Furosemide 40 MG TABLET PO SCH ×2 (07:49→17:14)
[2017-06-05] MEDS: Insulin LISPRO 300 UNITS/3 ML VIAL SQ SCH ×4 (07:50→21:06)
--- NOTE | 2017-06-05 09:30 | Internal Med Progress Note ---
Date of Encounter: 06/05/17 Time of Encounter: 09:29 - Assessment and plan (1) Respiratory failure Current Visit: Yes Status: Acute Assessment and plan: Continues to improve, steadily. I instructed her about CXR results and to get a chest X-ray in about 6 weeks, even if asymptomatic -- with PCP to verify resolution of effusions. Qualifiers: Chronicity: acute Respiratory failure complication: unspecified whether with hypoxia or hypercapnia Qualified Code(s): J96.00 - Acute respiratory failure, unspecified whether with hypoxia or hypercapnia (2) Acute kidney failure Current Visit: Yes Status: Acute Assessment and plan: Improving, slowly. Qualifiers: Acute renal failure type: unspecified Qualified Code(s): N17.9 - Acute kidney failure, unspecified (3) Diabetes Current Visit: No Status: Chronic Assessment and plan: Stable but still with elevations. Qualifiers: Diabetes mellitus type: type 2 Diabetes mellitus complication status: with kidney complications Diabetes mellitus complication detail: with other kidney complication Diabetes mellitus laborer marine terminal insulin use: with laborer marine terminal use Qualified Code(s): E11.29 - Type 2 diabetes mellitus with other diabetic kidney complication; Z79.4 - termite control technician (current) use of insulin; Z79.4 - care home ( current) use of insulin; Z79.4 - termite control technician (current) use of insulin; Z79.4 - termite control technician (current) use of insulin (4) Cardiomyopathy Current Visit: No Status: Chronic Assessment and plan: Clinically stable and resolving, slowly. Qualifiers: Cardiomyopathy type: unspecified Qualified Code(s): I42.9 - Cardiomyopathy , unspecified (5) Diarrhea Current Visit: Yes Status: Acute Assessment and plan: See HPI. Agree with her hopes to improve off antibiotics. Qualifiers: Diarrhea type: unspecified type Qualified Code(s): R19.7 - Diarrhea, unspecified (6) Anemia Current Visit: No Status: Acute Assessment and plan: Stable. Qualifiers: Anemia type: unspecified type Qualified Code(s): D64.9 - Anemia, unspecified (7) Urine retention Current Visit: No Status: Acute Assessment and plan: Seems to be voiding well. (8) Decubitus skin ulcer Current Visit: Yes Status: Acute Assessment and plan: Management as per Wound Care. Qualifiers: Pressure ulcer location: sacral region Pressure ulcer stage: stage 2 Qualified Code(s): L89.152 - Pressure ulcer of sacral region, stage 2 (9) Hypokalemia Current Visit: Yes Status: Acute Assessment and plan: Resolved. - Subjective Interval history: Diarrhea persists, but only 3 times yeseterdy and antibiotics just discontinued , yesterday. She is feeling stronger day-by-day and has been off oxygen since yesterday. Looking forward to going home. ROS is otherwise unremarkable. - Constitutional Vitals: Temp Pulse Resp BP Pulse Ox 98.2 F 85 16 129/82 92 06/05/17 07:22 06/05/17 07:22 06/05/17 07:22 06/05/17 07:22 06/05/17 07:22 General appearance: Present: A&O X 3, pleasant, no acute distress, answers questions appropriately - Head Head exam: Present: atraumatic, normal inspection, normocephalic - Respiratory Respiratory exam: Present: CTAB. Absent: accessory muscle use Additional comments: Totally clear. - Cardiovascular Cardiovascular exam: Present: RRR. Absent: systolic murmur - GI/Abdominal GI/Abdominal exam: Present: normal bowel sounds. Absent: hepatomegaly, mass, splenomegaly, tenderness - Extremities Exam Extremities exam: Present: normal capillary refill, normal inspection. Absent: calf tenderness, cyanotic, pedal edema Internal Medicine: Result - Labs CBC & Chem 7: 06/01/17 05:10 06/02/17 05:20 - ABG Interpretation ABG results: PT/INR, D-dimer PT 12.2 Seconds (9.4-12.1) H 05/29/17 11:54 - Impressions Impressions Chest X-Ray 06/05/17 13:57 IMPRESSION: Stable bibasilar airspace disease greater on the right. Small bilateral pleural effusions larger on the right. D/ / 06/05/2017 08:06:12 Miles Hussein MD / [facility] Interpreting Provider: Miles Hussein MD - VTE Documentation of Mechanical Device: Graduated compression elastic hosiery Consult Discharge Plan - Plan Referrals: NONE,PCP [Primary Care Provider] -
[2017-06-05] MEDS: Insulin DETEMIR 100 UNIT/ML X5UNITS SQ SCH (21:06)
[2017-06-06] MEDS: Albuterol 2.5 MG/3 ML NEBULIZER IH SCH ×4 (00:09→12:15)
[2017-06-06] MEDS: Sucralfate 1 GM TABLET PO SCH ×4 (05:49→20:05)
[2017-06-06] MEDS: Furosemide 40 MG TABLET PO SCH ×2 (07:44→16:39)
[2017-06-06] MEDS: Lactobacillus 1 EACH CAP.SPRINK PO SCH (07:44)
[2017-06-06] MEDS: Multivit/Ca/Min/Fe/FA 1 TAB TABLET PO SCH (07:45)
[2017-06-06] MEDS: Insulin LISPRO 300 UNITS/3 ML VIAL SQ SCH ×4 (07:48→20:11)
[2017-06-06] MEDS ORDERED: Albuterol 2.5 MG/3 ML NEBULIZER IH PRN (15:34)
--- NOTE | 2017-06-06 15:56 | Internal Med Progress Note ---
Date of Encounter: 06/07/17 Time of Encounter: 15:55 - Assessment and plan (1) Respiratory failure Current Visit: Yes Status: Acute Assessment and plan: Doing well, off oxygen. See yesterday's note -- will need follow-up CXR. Qualifiers: Chronicity: acute Respiratory failure complication: unspecified whether with hypoxia or hypercapnia Qualified Code(s): J96.00 - Acute respiratory failure, unspecified whether with hypoxia or hypercapnia (2) Acute kidney failure Current Visit: Yes Status: Acute Assessment and plan: Improved. Will need another BMP tomorrow. Qualifiers: Acute renal failure type: unspecified Qualified Code(s): N17.9 - Acute kidney failure, unspecified (3) Diabetes Current Visit: No Status: Chronic Assessment and plan: Stable but still with elevations. Qualifiers: Diabetes mellitus type: type 2 Diabetes mellitus complication status: with kidney complications Diabetes mellitus complication detail: with other kidney complication Diabetes mellitus termite control servicer insulin use: with termite control servicer use Qualified Code(s): E11.29 - Type 2 diabetes mellitus with other diabetic kidney complication; Z79.4 - termite inspector (current) use of insulin; Z79.4 - termite inspector ( current) use of insulin; Z79.4 - termite inspector (current) use of insulin; Z79.4 - termite inspector (current) use of insulin (4) Cardiomyopathy Current Visit: No Status: Chronic Assessment and plan: Clinically stable. Qualifiers: Cardiomyopathy type: unspecified Qualified Code(s): I42.9 - Cardiomyopathy , unspecified (5) Diarrhea Current Visit: Yes Status: Acute Assessment and plan: Improved, will follow. Qualifiers: Diarrhea type: unspecified type Qualified Code(s): R19.7 - Diarrhea, unspecified (6) Anemia Current Visit: No Status: Acute Assessment and plan: Stable. Qualifiers: Anemia type: unspecified type Qualified Code(s): D64.9 - Anemia, unspecified (7) Urine retention Current Visit: No Status: Acute Assessment and plan: Seems to be voiding well. (8) Decubitus skin ulcer Current Visit: Yes Status: Acute Assessment and plan: Management as per Wound Care. Qualifiers: Pressure ulcer location: sacral region Pressure ulcer stage: stage 2 Qualified Code(s): L89.152 - Pressure ulcer of sacral region, stage 2 - Time Spent With Patient less than 15 minutes - Subjective Interval history: No diarrhea, today. She's pleased with this. Still feeling stronger and wants to go home. Feels like she has strength and mobility to go home. she's concerned because insurance company only approved her until 06-04-17 and case finisher is trying to get approval until 06-11-17. I told her we would investigate reason for delayed discharge, tomorrow. ROS is otherwise unremarkable. - Constitutional Vitals: Temp Pulse Resp BP Pulse Ox 98.0 F 73 16 143/73 91 06/06/17 07:00 06/06/17 07:00 06/06/17 07:00 06/06/17 07:00 06/06/17 07:00 General appearance: Present: A&O X 3, pleasant, no acute distress, answers questions appropriately - Head Head exam: Present: atraumatic, normal inspection, normocephalic - Respiratory Respiratory exam: Present: CTAB. Absent: accessory muscle use - Cardiovascular Cardiovascular exam: Present: RRR. Absent: systolic murmur - GI/Abdominal GI/Abdominal exam: Present: normal bowel sounds, soft. Absent: hepatomegaly (sd ), mass, splenomegaly, tenderness - Extremities Exam Extremities exam: Present: normal capillary refill, pedal edema. Absent: calf tenderness Additional comments: Trace bipedal edema. Internal Medicine: Result - Labs CBC & Chem 7: 06/01/17 05:10 06/02/17 05:20 - ABG Interpretation ABG results: PT/INR, D-dimer PT 12.2 Seconds (9.4-12.1) H 05/29/17 11:54 - VTE Documentation of Mechanical Device: Graduated compression elastic hosiery Consult Discharge Plan - Plan Referrals: NONE,PCP [Primary Care Provider] -
[2017-06-06] MEDS: Diphenoxylate/Atropine 1 TAB TABLET PO PRN (20:05)
[2017-06-06] MEDS: Insulin DETEMIR 100 UNIT/ML X5UNITS SQ SCH (20:10)
[2017-06-07] MEDS: Sucralfate 1 GM TABLET PO SCH ×2 (05:21→12:00)
[2017-06-07 07:35] LABS: Basophils # 0.1 K/mcL (0.0-0.2); Basophils % 0.8 %; Eosinophils # 0.2 K/mcL (0.0-0.6); Eosinophils % 3.5 %; Hematocrit 38.4 % (35.3-44.9); Hemoglobin 12.1 g/dL (11.5-15.4); Immature Granulocytes % 0.3 % (0-4); Lymphocytes # 1.1 K/mcL (0.6-4.6); Lymphocytes % 18.5 %; Mean Corpuscular HGB Conc 31.5 g/dL (31.6-35.5); Mean Corpuscular Hemoglobin 26.3 pg (28.0-33.3); Mean Corpuscular Volume 83.5 fL (83.0-100.0); Mean Platelet Volume 10.3 fL (9.4-12.4); Monocytes # 0.4 K/mcL (0.0-1.3); Monocytes % 7.3 %; Neutrophils # 4.2 K/mcL (1.6-8.9); Platelet Count 273 K/mcL (140-400); Red Cell Distribution Width 16.5 % (11.5-14.5); Segmented Neutrophils % 69.6 %
[2017-06-07 07:43] LABS: Calcium 9.6 mg/dL (8.6-10.3); Potassium 5.3 mEq/L (3.5-5.1)
[2017-06-07] MEDS: Insulin LISPRO 300 UNITS/3 ML VIAL SQ SCH ×2 (07:51→12:15)
[2017-06-07] MEDS: Multivit/Ca/Min/Fe/FA 1 TAB TABLET PO SCH (07:57)
[2017-06-07] MEDS: Lactobacillus 1 EACH CAP.SPRINK PO SCH (07:57)
[2017-06-07] MEDS: Furosemide 40 MG TABLET PO SCH (07:58)
--- NOTE | 2017-06-07 10:22 | Discharge Summary ---
Date of Encounter: 06/07/17 Time of Encounter: 10:20 - Discharge Diagnosis (1) Respiratory failure Priority: Primary Status: Acute Comments: Pt has progressed well and currently shows no dypnea or hypoxia while being weaned off oxygen and currently on RA. CXR continues to improved. ATB coursed finished. Will continue on current meds at home. Qualifiers: Chronicity: acute Respiratory failure complication: unspecified whether with hypoxia or hypercapnia Qualified Code(s): J96.00 - Acute respiratory failure, unspecified whether with hypoxia or hypercapnia (2) Acute kidney failure Priority: Secondary Status: Acute Comments: Pt continues to improve on labs and currently Cr 1.7. Will continue on current meds and f/u with Nephrology. Qualifiers: Acute renal failure type: unspecified Qualified Code(s): N17.9 - Acute kidney failure, unspecified (3) Diabetes Priority: Secondary Status: Chronic Comments: Glucose remains well controlled with current meds. Will continue current regimen at home. Qualifiers: Diabetes mellitus type: type 2 Diabetes mellitus complication status: with kidney complications Diabetes mellitus complication detail: with other kidney complication Diabetes mellitus nursing home insulin use: with terminal worker use Qualified Code(s): E11.29 - Type 2 diabetes mellitus with other diabetic kidney complication; Z79.4 - dedicated intermodal truck driver (current) use of insulin; Z79.4 - dedicated intermodal truck driver ( current) use of insulin; Z79.4 - dedicated intermodal truck driver (current) use of insulin; Z79.4 - dedicated intermodal truck driver (current) use of insulin (4) Cardiomyopathy Priority: Secondary Status: Chronic Comments: No current issues. Continue current meds at home. CXR improving. Qualifiers: Cardiomyopathy type: unspecified Qualified Code(s): I42.9 - Cardiomyopathy , unspecified (5) Diarrhea Priority: Secondary Status: Acute Comments: Resolved once oral ATB DC'd Qualifiers: Diarrhea type: unspecified type Qualified Code(s): R19.7 - Diarrhea, unspecified (6) Anemia Priority: Secondary Status: Acute Comments: Resolved once she rec'd PRBC. Continue on Epogen, which will be managed by Nephrology Qualifiers: Anemia type: unspecified type Qualified Code(s): D64.9 - Anemia, unspecified (7) Urine retention Priority: Secondary Status: Acute Comments: Resolved. - Discharge Medications Home Medications: Albuterol Neb [Proventil Neb] 2.5 mg IH Q4HR 05/26/17 [History] Carafate 1 gm PO QIDAC 05/26/17 [History] Furosemide [Lasix] 60 mg PO BID 05/26/17 [History] Heparin [Heparin] 5,000 unit SQ Q12HR 05/26/17 [History] Humalog 0 units SQ HS 05/26/17 [History] Insulin LISPRO [HumaLOG] 0 units SQ TIDWM 05/26/17 [History] Lantus 6 units SQ HS 05/26/17 [History] Lopressor 50 mg PO BID 05/26/17 [History] Omeprazole [PriLOSEC] 20 mg PO DAILY 05/26/17 [History] Potassium Chloride [Klor-Con 10] 30 meq PO BID 05/26/17 [History] Procrit 10,000 units SQ 3XW 05/26/17 [History] Thera M Plus 1 tab PO DAILY 05/26/17 [History] Allergies/Adverse Reactions: 3 Allergy/AdvReac Type Severity Reaction Status Date / Time No Known Allergies Allergy Verified 05/25/17 22:52 Date of admission: 05/25/17 21:53 Primary care physician: PCP NONE Consults: 05/25/17 23:32 Consult to Nutrition [CONS] Routine Comment: Consulting Provider: NUTRITION Reason for Dietary Consult: Other Other:: wound healing Consult to Occupational Therapy [CONS] Routine Comment: Evaluate, develop and implement POC Reason for Consult: eval and treat Consult to Physical Therapy [CONS] Routine Comment: Evaluate, develop and implement POC Reason for Consult: eval and treat Consult to Recreational Therapy [CONS] Routine Comment: Evaluate, develop and implement POC Consult to Sandfill Operator Surface [CONS] Routine Reason for SW Consult: discharge planning 05/25/17 23:36 Consult to Wound Care [CONS] Routine Reason for Consult: coccyx wound, right heal Time Notified: 23:37 Call Completed: Yes Discharging clinician: Florin Edouard - Patient Status Disposition: Home Health Service Condition: Good Functional capacity at discharge: uses cane/walker Overall status at discharge: patient is progressing back to baseline - Discharge Instructions Follow Up With: NONE,PCP [Primary Care Provider] - Hospital course: Ms. Whitehead is a 47 year old female Ms. Whitehead, who was transferred to this facility from [facility] for rehabilitation after an extended stay for treatment for flu sepsis, respiratory failure, SAFIA and DKA. Patient was originally admitted for respiratory failure required intubation at [facility] and found to be septic with influenza. During that hospitalization patient was treated for DKA and progressed into a severe SAFIA. Patient has recovered well during her stay at this facility with her creatinine now decreasing down to 1.7. Chest x-ray continued to improve and patient eventually was taken off her oral antibiotics. Patient's oxygen was weaned currently stable facility and currently she is on room air with saturations greater than 90. Patient's glucose was well managed with sliding scale and current regimen. Patient continues to have moderate generalized weakness, fatigue and unsteady gait, likely secondary to her deconditioning after her severe illness extended hospital stay. Patient continues to progress well with physical therapy, but remains a risk for fall and injury due to generalized weakness and poor endurance. Patient is recommended to continue to use a walker after discharge to home to reduce risk of fall and injury. Patient requires assistance level will walker successfully complete daily living task of colon toileting, feeding , bathing, dressing and grooming. Will walker as necessary due to the patient' s unsteady gait, upper body weakness, inability to case picker and ambulation device and can ambulate only by pushing walker instead of a lesser assistive device such as a cane, crutch or standard walker. Time spent discussing smoking cessation with patient: 3 to 10 minutes - Time Spent with Patient Total time spent providing and/or coordinating discharge services: Less than 30 minutes - Constitutional Vitals: Temp Pulse Resp BP Pulse Ox 97.9 F 82 18 114/75 93 06/06/17 19:00 06/06/17 19:00 06/06/17 19:00 06/06/17 19:00 06/06/17 19:00 General appearance: Present: A&O X 3, pleasant, no acute distress, answers questions appropriately - Head Head exam: Present: atraumatic, normocephalic - Eye Eye exam: Present: PERRL, conjuntiva pink, sclera anicteric Pupils: Present: PERRL - Neck Neck exam general surgery: Present: supple, trachea midline. Absent: lymphadenopathy - Respiratory Respiratory exam: Present: rales. Absent: accessory muscle use, rhonchi, wheezes Additional comments: Lungs are clear to [place] and continue to have fine posterior bibasilar rales - Cardiovascular Cardiovascular exam: Present: RRR, +S1, +S2. Absent: diastolic murmur, gallop, rubs, systolic murmur - GI/Abdominal GI/Abdominal exam: Present: normal bowel sounds, soft, no peritoneal signs. Absent: distended, tenderness - Extremities Exam Extremities exam: Present: pedal edema, warm, radial pulses palpable and symmetrical. Absent: calf tenderness, cyanotic Additional comments: Continues with nonpitting edema to lower legs - Neurological Exam Neurological exam: Present: CN II-XII intact, oriented X3, no focal deficits. Absent: pronater drift, facial droop, speech deficit - Skin Skin exam: Present: dry, intact - VTE Documentation of Mechanical Device: Graduated compression elastic hosiery
--- NOTE | 2017-06-07 10:37 | Physician Discharge Referral ---
Home Health/Hosp Referral Info Transfer to: Home Health Provider in Charge Post Discharge: PCP - Diagnosis (1) Respiratory failure Priority: Primary Status: Acute (2) Acute kidney failure Priority: Secondary Status: Acute (3) Diabetes Priority: Secondary Status: Chronic (4) Cardiomyopathy Priority: Secondary Status: Chronic (5) Diarrhea Priority: Secondary Status: Acute (6) Anemia Priority: Secondary Status: Acute (7) Urine retention Priority: Secondary Status: Acute - Respiratory Orders None Smoking Cessation: Smoking cessation has been advised. For more information, call the [place] Tobacco Quit Line at 6-686-JATG-NOW. - Diet/Nutrition Diet/Nutrition Orders: No Concentrated Sweets - Activity Activity Orders: Up ad mayda, Walker - Services Needed Following services are medically necessary services: Nursing, Physical Therapy - Transfer Medications Home Medications: Albuterol Neb [Proventil Neb] 2.5 mg IH Q4HR 05/26/17 [History] Carafate 1 gm PO QIDAC 05/26/17 [History] Furosemide [Lasix] 60 mg PO BID 05/26/17 [History] Heparin [Heparin] 5,000 unit SQ Q12HR 05/26/17 [History] Humalog 0 units SQ HS 05/26/17 [History] Insulin LISPRO [HumaLOG] 0 units SQ TIDWM 05/26/17 [History] Lantus 6 units SQ HS 05/26/17 [History] Lopressor 50 mg PO BID 05/26/17 [History] Omeprazole [PriLOSEC] 20 mg PO DAILY 05/26/17 [History] Potassium Chloride [Klor-Con 10] 30 meq PO BID 05/26/17 [History] Procrit 10,000 units SQ 3XW 05/26/17 [History] Thera M Plus 1 tab PO DAILY 05/26/17 [History] Allergies/Adverse Reactions: 3 Allergy/AdvReac Type Severity Reaction Status Date / Time No Known Allergies Allergy Verified 05/25/17 22:52 Certification: Further, I certify that my clinical findings support that this patient is homebound (i.e. absences from home require considerable and taxing effort and are for medical reasons or jew services or infrequently or short duration when for other reasons) because: Homebound Reason: Patient requires assistance of a person or device to safely leave home, Post-surgery restriction and or conditions limit ability to leave home, Leaving home requires considerable and taxing effort due to condition, Severity of cardiac or pulmonary status limits activity tolerance Attestation: My signature below is to certify that this patient is under my care and that I, or nurse practitioner, or a physician's stonecutter assistant working with me, has a face-to -face encounter with this patient.
[2017-06-07 12:46] VITALS: BP 128/82
== END 2017-06-07 15:15 | disposition home health service (06) | DRG 945 ==
LOC: INPGRE 21:53
PROVIDERS: ADMIT Internal Medicine; ATTEND Internal Medicine